=== PATIENT | female | born 2000 | race African-American/Black ===

== ENCOUNTER 2019-06-30 16:54 | Outpatient (CLI) | payer OTHER, MEDICAID, SELFPAY ==
[2019-06-30] MEDS: LACTATED RINGERS 1,000 ML 1000 ML IV (18:00)
[2019-06-30] MEDS: ONDANSETRON 4 MG/2 ML INJ IV (18:17)
== END 2019-06-30 18:50 | disposition home or self-care (01) ==
LOC: LABOR 17:10 → OB 07-01 12:45
PROVIDERS: Visit Provider Obstetrics & Gynecology
DX: Z34.03 Encounter for supervision of normal first pregnancy, third trimester (principal); Z3A.39 39 weeks gestation of pregnancy
CPT/HCPCS: 59025; 96360; G0378; G0379; J2405

== ENCOUNTER 2019-07-12 19:58 | Observation (INO) | payer OTHER, MEDICAID, SELFPAY ==
--- NOTE | 2019-07-12 23:04 | PM.OBTRLD ---
Visit Information Visit Information Date of evaluation: 07/12/19 Primary OB Provider: Vinny Mohr On-call OB Provider: Sharri Peterson Reason for Evaluation: Yes rule out labor Evaluation Evaluation Baseline heart rate: 135 Variability: Moderate (11-25) monitor accelerations: Present monitor decelerations: Absent Contraction Frequency (minutes): 5 Uterine Contraction Intensity: Mild Category of Tracing: I Cervical dilation (cm): 0 Cervical effacement (%): 25 station: -2 Diagnosis, Plan/Disposition Plan/Disposition Plan: Assessment: 18-year-old at 40-,3/7 weeks gestation who presents to rule out labor Patient not in labor Passed mucus plug Plan: Discharged home kick counts Follow-up in [address] Mohr OB Disposition: home
== END 2019-07-12 21:00 | disposition home or self-care (01) ==
LOC: LABOR 20:00
PROVIDERS: Admitting Provider Obstetrics & Gynecology; Visit Provider Obstetrics & Gynecology
DX: O48.0 Post-term pregnancy (principal); Z3A.40 40 weeks gestation of pregnancy
CPT/HCPCS: 59025; 84112; G0378; G0379

== ENCOUNTER 2019-07-13 08:15 | Inpatient (IN) | payer OTHER, MEDICAID, SELFPAY ==
[2019-07-13 09:30] LABS: Add Manual Diff / Slide Review NO; Basophils Absolute Auto 100 /uL (0-100); Basophils Percent Auto 0.4 % (0-2); Eosinophils Absolute Auto 0 /uL (0-450); Hematocrit 33.8 % (36-46); Hemoglobin 11.4 g/dL (12.0-16.0); Lymphocytes Absolute Auto 900 /uL (1100-4500); Lymphocytes Percent Auto 4.4 % (25-40); Mean Corpuscular HGB Conc 33.8 % (30-36); Mean Corpuscular Hemoglobin 27.2 PG (26-34); Mean Corpuscular Volume 80.4 fL (80-100); Monocytes Absolute Auto 600 /uL (0-900); Monocytes Percent Auto 2.8 % (3-14); Neutrophils Absolute Auto 18700 /uL (1500-7000); Neutrophils Percent Auto 92.4 % (50-75); Platelet Count 133 X10^3/uL (150-400); Red Cell Distribution Width 14.2 % (11.6-14.8); White Blood Cell Count 20.3 X10^3/uL (4.5-11.0)
[2019-07-13 10:20] VITALS: BP 122/70
--- NOTE | 2019-07-13 12:16 | P.HPOB_ITS ---
OB HPI Date/Time Date of admission: 07/13/19 Date Patient Seen: 07/13/19 Time Patient Seen: 10:00 History of Present Condition Chief complaint: OBS : 1 Para: 0 Estimated Date of Delivery: 07/07/19 Estimated Gestational Age (weeks): 40 Narrative: Debbie Thrasher is a 18 year old female admitted in active labor History of Present care: good care, initiated at week # (11) and pounds weight gain (19) Preadmission Labs Blood type: A (+) positive -: Antibody screen: negative, GBS status: negative, HBsAG: negative, HSV 2: negative and RPR/VDLR: negative -: Chlamydia screen: not detected and Gonorrhea screen: not detected -: Rubella: immune Cell-free DNA: Negative at 25 weeks 1 hr GTT: 70 Evaluation Evaluation Baseline heart rate: 150 Variability: Moderate (11-25) monitor accelerations: Present monitor decelerations: Absent Contraction Frequency (minutes): 3 Uterine Contraction Intensity: Moderate Category of Tracing: I Cervical dilation (cm): 5 Cervical effacement (%): 70 station: -2 Laboratory results: Laboratory Tests 07/13/19 07/13/19 09:00 09:00 WBC 20.3 H RBC 4.20 Hgb 11.4 L Hct 33.8 L MCV 80.4 MCH 27.2 MCHC 33.8 RDW 14.2 Plt Count 133 L Neut % (Auto) 92.4 H Lymph % (Auto) 4.4 L [place] % (Auto) 2.8 L Eos % (Auto) 0.0 L Baso % (Auto) 0.4 Neut # (Auto) 04270 H Lymph # (Auto) 900 L [place] # (Auto) 600 Eos # (Auto) 0 Baso # (Auto) 100 Blood Type A Positive Antibody Screen Negative [facility] Medical History (Updated 07/13/19 @ 12:45 by Allison Romo MD) Migraine headache (Acute) Social History Smoking Status: Never smoker Social History Smoking Status: Never smoker Review of Systems Review of Systems Narrative: Patient denies any signs or symptoms of preeclampsia. She perhaps enrique d leakage of fluid beginning early this a.m.. Good movement. No fevers. ROS Unobtainable: All systems reviewed & are unremarkable except as noted in HPI and below Exam Vital Signs (past 8 hours): -blood pressure 112/75, pulse of 90, temperature 36? point 07/13/19 10:20 Blood Pressure 122/70 Narrative Exam Narrative: HEENT exam within normal limits. Lungs are clear to auscultation percussion. Heart is regular rate and rhythm no S3-S4 or murmurs. Abdomen is soft, nontender. Fetus is vertex. Extremities without edema and nontender. Objective Labs Result Diagrams: 07/13/19 09:00 Labs: Laboratory Results - last 24 hr 07/13/19 07/13/19 09:00 09:00 WBC 20.3 H RBC 4.20 Hgb 11.4 L Hct 33.8 L MCV 80.4 MCH 27.2 MCHC 33.8 RDW 14.2 Plt Count 133 L Neut % (Auto) 92.4 H Lymph % (Auto) 4.4 L Hamilton % (Auto) 2.8 L Eos % (Auto) 0.0 L Baso % (Auto) 0.4 Neut # (Auto) 27345 H Lymph # (Auto) 900 L Hamilton # (Auto) 600 Eos # (Auto) 0 Baso # (Auto) 100 Blood Type A Positive Antibody Screen Negative Assessment and Plan Assessment and Plan Assessment and Plan narrative: Primigravida at 40 weeks 6 days in active labor. Anticipate vaginal delivery. Patient just received epidural catheter for pain control.
--- NOTE | 2019-07-13 17:53 | P.PCNOB_ITS ---
Labor & Delivery Delivery date: 07/13/19 Delivery monitor: external FHT and external uterine Route of delivery: L&D Laceration Description: None Estimated blood loss (mL): 150 Anesthesia type: Epidural Narrative: Patient arrived on Labor and delivery in active labor. She progressed normally. She received an epidural catheter for pain control. There was clear amniotic fluid. There were intermittent variable decelerations category 1 to category 2 monitor. The patient delivered spontaneously, over an intact perineum a viable male 2 was placed immediately on maternal abdomen. after the cord stopped pulsating the cord was clamped, cut, cord bloods obtained. the placenta delivered spontaneously, intact, with 3 vessels. There were no cervical, vaginal tears. There were minor perineal tears that did not require suturing. Both mother doing well. Estimated blood loss 150 cc. [place] Baby 1: gender: Male Presentation: vertex position: Right Occiput Anterior Placenta delivery description: Spontaneous cord vessel description: 3 Vessels score (1 min): 8 score (5 min): 9 Plan for aftercare: Routine post vaginal delivery care
[2019-07-13 18:14] LABS: HIV 1 & 2 Ab/Ag 4th Gen Combo NEGATIVE (NEGATIVE)
[2019-07-13] MEDS: IBUPROFEN 600 MG TABLET PO (18:33)
[2019-07-14] MEDS: IBUPROFEN 600 MG TABLET PO ×4 (00:16→22:26)
[2019-07-14 05:59] LABS: Add Manual Diff / Slide Review NO; Basophils Absolute Auto 100 /uL (0-100); Basophils Percent Auto 0.3 % (0-2); Eosinophils Absolute Auto 0 /uL (0-450); Eosinophils Percent Auto 0.1 % (2-4); Hematocrit 28.2 % (36-46); Hemoglobin 9.4 g/dL (12.0-16.0); Lymphocytes Absolute Auto 1900 /uL (1100-4500); Lymphocytes Percent Auto 9.4 % (25-40); Mean Corpuscular HGB Conc 33.5 % (30-36); Mean Corpuscular Hemoglobin 27.1 PG (26-34); Mean Corpuscular Volume 80.9 fL (80-100); Monocytes Absolute Auto 1300 /uL (0-900); Monocytes Percent Auto 6.4 % (3-14); Neutrophils Absolute Auto 17000 /uL (1500-7000); Neutrophils Percent Auto 83.8 % (50-75); Platelet Count 123 X10^3/uL (150-400); Red Blood Cell Count 3.48 X10^6/uL (4.0-5.2); Red Cell Distribution Width 14.7 % (11.6-14.8); White Blood Cell Count 20.3 X10^3/uL (4.5-11.0)
--- NOTE | 2019-07-14 13:19 | PM.OBPN.1 ---
Subjective - OB Subjective Patient comments: no complaints [place] baby status: doing well Henderson feeding status: exclusively breast feeding Date Patient Seen: 07/14/19 Time Patient Seen: 13:19 Interval history: post day #1 Patient is without difficulty. She is urinating and ambulating well. As a new mom she does not feel ready to be discharged. Exam Vital Signs (past 8 hours): Blood pressure 118/70, pulse of 92, temperature 98.6? Narrative Exam Narrative: Abdomen is soft, nontender. Uterus is firm, at U, nontender. Mild lochia. Extremities without edema and nontender Objective Labs Result Diagrams: 07/14/19 05:15 Labs: Laboratory Results - last 24 hr 07/13/19 07/14/19 16:30 05:15 WBC 20.3 H RBC 3.48 L Hgb 9.4 L Hct 28.2 L MCV 80.9 MCH 27.1 MCHC 33.5 RDW 14.7 Plt Count 123 L Neut % (Auto) 83.8 H Lymph % (Auto) 9.4 L [place] % (Auto) 6.4 Eos % (Auto) 0.1 L Baso % (Auto) 0.3 Neut # (Auto) 36488 H Lymph # (Auto) 1900 [place]elope # (Auto) 1300 H Eos # (Auto) 0 Baso # (Auto) 100 HIV 1&2 Ab/P24 Ag 4thGn Negative Assessment & Plan Assessment and Plan (1) Vaginal delivery: Status: Acute Current Visit: Yes (2) Acute blood loss anemia: Status: Acute Current Visit: Yes Plan day: 1 plan OB: routine care Time Spent With Patient Time: Total time spent is greater than 50% in coordination of care (as documented) at patient's floor/unit and/or counseling patient: Time with patient: less than 15 minutes
[2019-07-15] MEDS: IBUPROFEN 600 MG TABLET PO (06:14)
--- NOTE | 2019-07-15 07:53 | PM.OBDS.1 ---
Discharge Providers Provider Date of admission: 07/13/19 08:15 Discharge Date: 07/15/19 Consults: 07/13/19 09:10 Consult to Anesthesiology Urgent Comment: Consulting Provider: Anesthesiologist Reason for consultation: Epidural Has provider been notified: No 07/13/19 17:08 Consult to Hospitality Intern Routine Comment: Discharge provider: Allison Romo MD Summary Hospital Course Date Patient Seen: 07/15/19 Time Patient Seen: 07:53 Procedures: Epidural catheter, vaginal delivery Hospital Course: Patient arrived on Labor and delivery in active labor. She received an epidural catheter for pain control. She had a spontaneous vaginal delivery without tears. Patient denies any signs or symptoms of preeclampsia. She is urinating and ambulating well. Blood pressure 104/64, pulse 85, temperature 97.5? .Patient's abdomen is soft, nontender. Uterus is firm, at U nontender. Mild lochia. Extremities without edema and nontender Patient's blood type is Rh positive, she is rubella immune Peripartum Data Infant Delivery Method: Natural Vaginal Laceration description: None Procedures: Epidural catheter, vaginal delivery complications: none 1: Gender: Male Disposition of : home Discharge Diagnosis (1) Vaginal delivery: Status: Acute (2) Acute blood loss anemia: Status: Acute Status at Discharge Cognitive/behavioral status at discharge: oriented Functional status at discharge: independent ambulation Overall status at discharge: patient is progressing back to baseline Time Spent with Patient Time attestation: Total time spent providing and/or coordinating discharge services: Time spent: Less than 30 minutes Objective Labs Result Diagrams: 07/14/19 05:15 Discharge Plan Discharge Plan Patient Disposition: Home Discharge Med Rec/Prescriptions Prescriptions: New vit no.109-iron-FA 40 mg iron- 1 mg tablet,chewable 1 tab PO DAILY Qty: 90 RF: 1 docusate sodium [Dulcolax Stool Softener (dss)] 100 mg capsule 100 mg PO DAILY Qty: 30 RF: 0 ferrous gluconate 324 mg (38 mg iron) tablet 324 mg PO DAILY Qty: 60 RF: 0 ibuprofen 600 mg Tablet 600 mg PO Q6HR PRN (Reason: Pain, Mild (1-3)) Qty: 30 RF: 0 Follow up/Referrals: Allison Romo MD [Physician] - 1 Month Provider Discharge Instructions Diet: Regular Activity: Nothing in vagina for 4 weeks Skin/Wound/Dressing Care Report to your healthcare provider any signs of infection, such as:: chills, fever and increased pain
[2019-07-15] MEDS: FERROUS GLUCONATE 324 MG TABLET PO (10:27)
[2019-07-15] MEDS: LANOLIN OINT 7 GM 1 APPLIC TOP (10:27)
== END 2019-07-15 12:15 | disposition home or self-care (01) | DRG 560 ==
PROVIDERS: Specialist
DX: O80 Encounter for full-term uncomplicated delivery (principal); Z3A.40 40 weeks gestation of pregnancy; Z37.0 Single live birth; D62 Acute posthemorrhagic anemia
CPT/HCPCS: 01967; 36415; 59050; 59409; 85025; 86850; 86900; 86901; 87389; G0379

== ENCOUNTER 2020-01-05 08:58 | Inpatient (IN) | payer OTHER, MEDICAID, SELFPAY ==
[2020-01-05] VITALS (16 sets, daily range): BP systolic 99–122; BP diastolic 50–89; PULSE 108–140; RESP 15–24; TEMP 36.4–38.8; O2SAT 96–100; BMI 19.3
[2020-01-05] MEDS: ONDANSETRON 4 MG ODT SL (10:35)
[2020-01-05 10:46] LABS: Add Manual Diff / Slide Review NO; Basophils Absolute Auto 0 /uL (0-100); Basophils Percent Auto 0.2 % (0-2); Eosinophils Absolute Auto 100 /uL (0-450); Eosinophils Percent Auto 0.5 % (2-4); Hematocrit 42.8 % (36-46); Hemoglobin 14.5 g/dL (12.0-16.0); Lymphocytes Absolute Auto 500 /uL (1100-4500); Lymphocytes Percent Auto 3.3 % (25-40); Mean Corpuscular HGB Conc 33.9 % (30-36); Mean Corpuscular Hemoglobin 29.7 PG (26-34); Mean Corpuscular Volume 87.7 fL (80-100); Monocytes Absolute Auto 500 /uL (0-900); Monocytes Percent Auto 3.7 % (3-14); Neutrophils Absolute Auto 13200 /uL (1500-7000); Neutrophils Percent Auto 92.3 % (50-75); Platelet Count 246 X10^3/uL (150-400); Red Blood Cell Count 4.88 X10^6/uL (4.0-5.2); Red Cell Distribution Width 14.6 % (11.6-14.8); White Blood Cell Count 14.3 X10^3/uL (4.5-11.0)
[2020-01-05 10:55] LABS: INR 1.1 (0.9-1.3); Prothrombin Time 12.5 SECONDS (10.1-12.7)
[2020-01-05 10:58] LABS: PTT Partial Thromboplastin Tim 32 SECONDS (26.4-36.2)
[2020-01-05 11:00] LABS: Alanine Aminotransferase 37 IU/L (<35); Albumin 4.9 g/dL (3.5-5.0); Albumin Globulin Ratio 1.2 (1.0-2.8); Alkaline Phosphatase 96 U/L (38-126); Aspartate Aminotransferase 39 IU/L (14-36); Bilirubin Total 0.7 mg/dL (0.2-1.3); Blood Urea Nitrogen 15 mg/dL (7-17); Calcium 9.8 mg/dL (8.4-10.2); Carbon Dioxide 25 mmol/L (22-32); Chloride 104 mmol/L (98-107); Estimated Glomerular Filt Rate > 60.0 mL/min (>60); Globulin 4.1 g/dL (1.7-4.1); Glucose 82 mg/dL (70-100); HEMOLYSIS 18 (0-50); Lipase 95 U/L (23-300); Potassium 4.2 mmol/L (3.4-5.1); Sodium 140 mmol/L (137-145)
--- NOTE | 2020-01-05 11:20 | ED_ITS ---
HPI - Abdominal Pain <KENNETH Prasad - Last Filed: 01/05/20 22:05> General Chief Complaint: Abdominal Pain Stated Complaint: abdominal pain, sick Time Seen by Provider: 01/05/20 09:03 Source: patient Mode of arrival: Ambulatory History of Present Illness HPI narrative: 19yo female presents to the emergency department complaining of right lower quadrant pain for the past 3-4 days. Patient states initially s tarted on the right side and has progressed to the middle of her abdomen. She has had nausea without vomiting. Patient states she has had chills and fever at home. She states the pain is a dull aching 6/10 that is worse with movement and slightly better with rest. Patient states over the past few hours the pain has gotten significantly worse. She denies taking anything for pain. She denies a ny constipation, abdominal surgeries, chest pain, dizziness, blood in her stool, or any other concerns. Patient states that she feels short of breath during the painful episodes. She also states she has had a cough for the past week. Patient states she gave to her daughter in July. Patient denies any concerns for STIs, states she has had the same partner for more than 6 months. Related Data Home Medications Medication Instructions Recorded Confirmed No Known Home Medications 01/05/20 01/05/20 Allergies Allergy/AdvReac Type Severity Reaction Status Date / Time No Known Drug Allergies Allergy Verified 01/05/20 22:26 Review of Systems <KENNETH Prasad - Last Filed: 01/05/20 22:05> Review of Systems Narrative: REVIEW OF SYSTEMS: GENERAL: Denies fever, chills, malaise, or wt. loss. HENT: No head trauma, sore throat, or dysphagia. EYES: No vision changes. CARDIOVASCULAR: No chest pain, palpitations, or orthopnea. RESPIRATORY: Reports cough, see HPI. GASTROINTESTINAL: Complains of right lower quadrant abdominal pain, see HPI GENITOURINARY: No flank pain, urinary incontinence, hesitancy, frequency, or dysuria. No vaginal discharge or dyspareunia. Denies concerns for STIs MUSCULOSKELETAL: No pain, weakness, or trauma. INTEGUMENTARY: No rash, lesions, or pruritus. NEURO: No headaches. Patient History <KENNETH Prasad - Last Filed: 02/27/20 22:05> Medical History Migraine headache (Acute) Vaginal delivery (Acute ~07/2019) Social History household members: family and children Smoking Status: Never smoker alcohol intake: never Smoking Status: Never smoker Exam <Daisy GuyKENNETH - Last Filed: 01/05/20 22:05> Initial Vital Signs Initial Vital Signs: Vital Signs Temperature 97.6 F 01/05/20 09:08 Pulse Rate 108 H 01/05/20 09:08 Respiratory Rate 15 01/05/20 09:08 Blood Pressure 111/62 01/05/20 09:08 Pulse Oximetry 100 01/05/20 09:08 PHYSICAL EXAMINATION: GENERAL: Well groomed, alert, and cooperative. Answers questions promptly and appropriately. Vital signs noted. HENT: Normocephalic, atraumatic. Hearing intact. Oral mucosa is pink and moist. EYES: Conjunctiva pink, sclera white, no periorbital swelling. CARDIOVASCULAR: S1 and S2 sounds normal. Increased rate and regular rhythm, no murmurs, clicks, or bruits. RESPIRATORY: Normal respiratory rate, trachea midline, airway patent. No stridor, nasal flaring or accessory muscle use. Lungs are clear in all morales without wheeze, rhonchi, or crackles. GASTROINTESTINAL: Bowel sounds normoactive. Abdomen is soft, right lower quadrant tenderness, right lower quadrant rebound tenderness. No organomegaly, no palpable masses. GENITALURINARY: No flank tenderness. Speculum pelvic exam was performed, cervix was visualized, no erythema, increased tomorrow of white discharge noted. Wet prep simple was taken. Right index a tenderness. Moderate CVA tenderness. Vulva without erythema or lesions. JOSE C Burrows was present during pelvic exam, patient tolerated exam well. MUSCULOSKELETAL: Normal gait and coordination. Equal tone and mass bilaterally. EXTREMITIES: CMS intact, no pedal edema. SKIN: Warm, dry, soft, appropriate color for ethnicity. No lesions, rashes, or wounds to visualized areas. NEURO: Alert and Oriented X 3. Good coordination. No ataxia, or sensory deficits, or cognitive issues. PSYCH: Appropriate affect and mood. <Tiana Ramirez MD - Last Filed: 01/06/20 03:25> Initial Vital Signs Initial Vital Signs: Vital Signs Temperature 97.6 F 01/05/20 09:08 Pulse Rate 108 H 01/05/20 09:08 Respiratory Rate 15 01/05/20 09:08 Blood Pressure 111/62 01/05/20 09:08 Pulse Oximetry 100 01/05/20 09:08 Course <KENNETH Prasad - Last Filed: 01/05/20 22:05> Course Course Narrative: Patient was given IV fluids and Zofran in the emergency department. test done before CT scan and Toradol administration. Patient received sepsis resus fluids, APAP was given. Influenza test was ordered and chest x-ray to check for other infectious etiologies. CT was negative for cause of fever, tachycardia, and pain. Patient continued to complain of right lower quadrant pain, she was given 2 mg of IV morphine to help with pain. She states this reduced her pain. Pelvic ultrasound and pelvic exam was complete, tenderness was noted on exam, ultrasound was negative. I called Dr. Luque who agreed and [employer] consult was advised. I talked to Dr. Byers who states she ill come to the ED to evaluate the patient. Patient was switched to LR at 200ml/hr to maintence. Patient continued to have recurrence of additional morphine and Zofran were ordered. Patient was evaluated in the emergency department by Dr. Byers who admitted the patient as inpatient. Patient did remain stable despite tachycardia, blood pressure remained within normal limits. She remained alert and awake. She was seen breast-feeding her baby as well. Orders Ordered: Acetaminophen (Tylenol) 650 mg PO Q6HR PRN PRN Reason: Fever/Mild Pain (1-3) Hydrocodone Bitart/Acetaminophen ([place] 5/325) 1 tab PO Q4HR PRN PRN Reason: Pain, Moderate (4-6) Hydrocodone Bitart/Acetaminophen ([place] 5/325) 2 tab PO Q4HR PRN PRN Reason: Pain, Severe (7-10) Gentamicin Sulfate (Garamycin Trough) 1 request MISC NOW ONE Stop: 01/08/20 20:31 Gentamicin Sulfate (Garamycin Peak) 1 request MISC NOW ONE Stop: 01/08/20 22:31 Clindamycin Phosphate (Cleocin) 900 mg in 50 mls @ 50 mls/hr IV Q8HR [facility] Last Admin: 01/05/20 23:24 Dose: 50 mls/hr Documented by: MELODY Gentamicin Sulfate 140 mg/ (Sodium Chloride) 103.5 mls @ 103.5 mls/hr IV Q24H [facility] Last Infusion: 01/05/20 23:24 Dose: 0 mls/hr Documented by: Admin: 01/05/20 21:23 Dose: 103.5 mls/hr Documented by: MELODY Lactated Ringer's (Lactated Ringers) 1,000 mls @ 100 mls/hr IV CONT [facility] Last Admin: 01/05/20 23:24 Dose: 100 mls/hr Documented by: MELODY Ondansetron HCl (Zofran) 4 mg IV Q4HR PRN PRN Reason: Nausea Promethazine HCl (Phenadoz) 12.5 mg PO Q6HR PRN PRN Reason: Nausea Discontinued Medications Acetaminophen (Tylenol) 975 mg PO NOW ONE Stop: 01/05/20 13:05 Last Admin: 01/05/20 13:12 Dose: 975 mg Documented by: ALEX Gentamicin Sulfate (Garamycin Per Pharmacy) 139.5 request [facility] – [place] NOW [facility] Sodium Chloride (Normal Saline 0.9%) 1,000 mls @ 1,000 mls/hr IV BOLUS ONE Stop: 01/05/20 12:11 Last Infusion: 01/05/20 13:10 Dose: 0 mls/hr Documented by: Admin: 01/05/20 11:27 Dose: 1,000 mls/hr Documented by: ALEX Sodium Chloride (Normal Saline 0.9%) 1,000 mls @ 1,000 mls/hr IV BOLUS ONE Stop: 01/05/20 14:03 Last Infusion: 01/05/20 14:10 Dose: 0 mls/hr Documented by: Admin: 01/05/20 13:13 Dose: 1,000 mls/hr Documented by: ALEX Sodium Chloride (Normal Saline 0.9%) 1,395 mls @ 465 mls/hr 30 ml/kg infuse over 3 hr (1395 ml) IV NOW ONE Stop: 01/05/20 18:06 Last Admin: 01/05/20 15:10 Dose: Not Given Documented by: ALEX Lactated Ringer's (Lactated Ringers) 1,000 mls @ 200 mls/hr IV CONT [facility] Last Infusion: 01/05/20 23:10 Dose: 100 mls/hr Documented by: Admin: 01/05/20 21:18 Dose: 200 mls/hr Documented by: Infusion: 01/05/20 20:59 Dose: 0 mls/hr Documented by: Admin: 01/05/20 15:31 Dose: 200 mls/hr Documented by: ALEX Piperacillin/Tazobactam/Dextrose (Zosyn) 3.375 gm in 50 mls @ 100 mls/hr IV NOW ONE Stop: 01/05/20 17:00 Last Infusion: 01/05/20 17:16 Dose: 0 mls/hr Documented by: Admin: 01/05/20 16:44 Dose: 100 mls/hr Documented by: ALEX Ketorolac Tromethamine (Toradol) 30 mg IV NOW ONE Stop: 01/05/20 11:28 Last Admin: 01/05/20 12:39 Dose: 30 mg Documented by: ALEX Morphine Sulfate (Morphine) 2 mg IV NOW ONE Stop: 01/05/20 15:32 Last Admin: 01/05/20 15:44 Dose: 2 mg Documented by: ALEX Ondansetron HCl (Zofran Odt) 4 mg SL NOW ONE Stop: 01/05/20 10:32 Last Admin: 01/05/20 10:35 Dose: 4 mg Documented by: REAL Ondansetron HCl (Zofran) 4 mg IV NOW ONE Stop: 01/05/20 11:13 Last Admin: 01/05/20 11:28 Dose: 4 mg Documented by: ALEX Consultations Consultation #1: Patient staffed with 1700 Dr. Luque was consulted 1719: Dr. Yeh consulted, she states she will see the patient in approximately an hour. 1850: Dr. Yeh was present in the emergency department to evaluate patient. Vital Signs Vital signs: Vital Signs - 8 hr 01/05/20 19:54 Pulse Rate 127 H Respiratory Rate 17 Blood Pressure [Left Arm] 108/56 L Pulse Oximetry 100 <Tiana Ramirez MD - Last Filed: 01/06/20 03:25> Orders Ordered: Acetaminophen (Tylenol) 650 mg PO Q6HR PRN PRN Reason: Fever/Mild Pain (1-3) Hydrocodone Bitart/Acetaminophen ([place] 5/325) 1 tab PO Q4HR PRN PRN Reason: Pain, Moderate (4-6) Hydrocodone Bitart/Acetaminophen ([place] 5/325) 2 tab PO Q4HR PRN PRN Reason: Pain, Severe (7-10) Gentamicin Sulfate (Garamycin Trough) 1 request [facility] [place] NOW ONE Stop: 01/08/20 20:31 Gentamicin Sulfate (Garamycin Peak) 1 request [facility] [place] NOW ONE Stop: 01/08/20 22:31 Clindamycin Phosphate (Cleocin) 900 mg in 50 mls @ 50 mls/hr IV Q8HR [facility] Last Admin: 01/05/20 23:24 Dose: 50 mls/hr Documented by: MELODY Gentamicin Sulfate 140 mg/ (Sodium Chloride) 103.5 mls @ 103.5 mls/hr IV Q24H [facility] Last Infusion: 01/05/20 23:24 Dose: 0 mls/hr Documented by: Admin: 01/05/20 21:23 Dose: 103.5 mls/hr Documented by: MELODY Lactated Ringer's (Lactated Ringers) 1,000 mls @ 100 mls/hr IV CONT [facility] Last Admin: 01/05/20 23:24 Dose: 100 mls/hr Documented by: MELODY Ondansetron HCl (Zofran) 4 mg IV Q4HR PRN PRN Reason: Nausea Promethazine HCl (Phenadoz) 12.5 mg PO Q6HR PRN PRN Reason: Nausea Discontinued Medications Acetaminophen (Tylenol) 975 mg PO NOW ONE Stop: 01/05/20 13:05 Last Admin: 01/05/20 13:12 Dose: 975 mg Documented by: ALEX Gentamicin Sulfate (Garamycin Per Pharmacy) 139.5 request [facility] – [place] NOW [facility] Sodium Chloride (Normal Saline 0.9%) 1,000 mls @ 1,000 mls/hr IV BOLUS ONE Stop: 01/05/20 12:11 Last Infusion: 01/05/20 13:10 Dose: 0 mls/hr Documented by: Admin: 01/05/20 11:27 Dose: 1,000 mls/hr Documented by: ALEX Sodium Chloride (Normal Saline 0.9%) 1,000 mls @ 1,000 mls/hr IV BOLUS ONE Stop: 01/05/20 14:03 Last Infusion: 01/05/20 14:10 Dose: 0 mls/hr Documented by: Admin: 01/05/20 13:13 Dose: 1,000 mls/hr Documented by: ALEX Sodium Chloride (Normal Saline 0.9%) 1,395 mls @ 465 mls/hr 30 ml/kg infuse over 3 hr (1395 ml) IV NOW ONE Stop: 01/05/20 18:06 Last Admin: 01/05/20 15:10 Dose: Not Given Documented by: ALEX Lactated Ringer's (Lactated Ringers) 1,000 mls @ 200 mls/hr IV CONT [facility] Last Infusion: 01/05/20 23:10 Dose: 100 mls/hr Documented by: Admin: 01/05/20 21:18 Dose: 200 mls/hr Documented by: Infusion: 01/05/20 20:59 Dose: 0 mls/hr Documented by: Admin: 01/05/20 15:31 Dose: 200 mls/hr Documented by: ALEX Piperacillin/Tazobactam/Dextrose (Zosyn) 3.375 gm in 50 mls @ 100 mls/hr IV NOW ONE Stop: 01/05/20 17:00 Last Infusion: 01/05/20 17:16 Dose: 0 mls/hr Documented by: Admin: 01/05/20 16:44 Dose: 100 mls/hr Documented by: ALEX Ketorolac Tromethamine (Toradol) 30 mg IV NOW ONE Stop: 01/05/20 11:28 Last Admin: 01/05/20 12:39 Dose: 30 mg Documented by: ALEX Morphine Sulfate (Morphine) 2 mg IV NOW ONE Stop: 01/05/20 15:32 Last Admin: 01/05/20 15:44 Dose: 2 mg Documented by: ALEX Ondansetron HCl (Zofran Odt) 4 mg SL NOW ONE Stop: 01/05/20 10:32 Last Admin: 01/05/20 10:35 Dose: 4 mg Documented by: REAL Ondansetron HCl (Zofran) 4 mg IV NOW ONE Stop: 01/05/20 11:13 Last Admin: 01/05/20 11:28 Dose: 4 mg Documented by: ALEX Vital Signs Vital signs: Vital Signs - 8 hr 01/05/20 19:54 Pulse Rate 127 H Respiratory Rate 17 Blood Pressure [Left Arm] 108/56 L Pulse Oximetry 100 MDM - Abdominal Pain <KENNETH Prasad - Last Filed: 01/05/20 22:05> Medical Records Attestation: I reviewed the patient's medical records. Lab Data Attestation: I reviewed the patient's lab results. Result diagrams: 01/05/20 10:32 01/05/20 20:50 Labs: Lab Results 01/05/20 01/05/20 01/05/20 Range/Units 10:32 10:32 10:32 WBC 14.3 H (4.5-11.0) X10^3/uL RBC 4.88 (4.0-5.2) X10^6/uL Hgb 14.5 (12.0-16.0) g/dL Hct 42.8 (36-46) % MCV 87.7 (80-100) fL MCH 29.7 (26-34) PG MCHC 33.9 (30-36) % RDW 14.6 (11.6-14.8) % Plt Count 246 (150-400) X10^3/uL Neut % (Auto) 92.3 H (50-75) % Lymph % (Auto) 3.3 L (25-40) % Braxton % (Auto) 3.7 (3-14) % Eos % (Auto) 0.5 L (2-4) % Baso % (Auto) 0.2 (0-2) % Neut # (Auto) 13244 H (5767-2716) /uL Lymph # (Auto) 500 L (6638-2106) /uL Braxton # (Auto) 500 (0-900) /uL Eos # (Auto) 100 (0-450) /uL Baso # (Auto) 0 (0-100) /uL PT 12.5 (10.1-12.7) SECONDS INR 1.1 (0.9-1.3) APTT 32 (26.4-36.2) SECONDS Sodium 140 (137-145) mmol/L Potassium 4.2 (3.4-5.1) mmol/L Chloride 104 (98-107) mmol/L Carbon Dioxide 25 (22-32) mmol/L BUN 15 (7-17) mg/dL Creatinine 0.50 L (0.52-1.04) mg/dL Estimated GFR > 60.0 (>60) mL/min BUN/Creatinine Ratio 30.0 H (6-22) Glucose 82 (70-100) mg/dL Lactate (0.7-2.1) mmol/L Calcium 9.8 (8.4-10.2) mg/dL Total Bilirubin 0.7 (0.2-1.3) mg/dL AST 39 H (14-36) IU/L ALT 37 H (<35) IU/L Alkaline Phosphatase 96 (38-126) U/L Total Protein 9.0 H (6.3-8.2) g/dL Albumin 4.9 (3.5-5.0) g/dL Globulin 4.1 (1.7-4.1) g/dL Albumin/Globulin Ratio 1.2 (1.0-2.8) Lipase 95 (23-300) U/L Procalcitonin (<0.5) ng/mL HCG, Quant mIU/mL Urine Color Urine Appearance Urine pH (4.5-8.0) Ur Specific Sumner (1.000-1.035) Urine Protein (Negative) Urine Glucose (UA) (Negative) g/dL Urine Ketones (NEGATIVE) Urine Occult Blood (Negative) Urine Nitrate (Negative) Urine Bilirubin (NEGATIVE) Urine Urobilinogen (0.2) E.U./dL Ur Leukocyte Esterase (NEGATIVE) Urine RBC (0-5/HPF) Urine WBC (0-5/HPF) Ur Squamous Epith Cells (0-5/HPF) Urine Bacteria (None) Urine Mucus (Negative) Ur Culture Indicated? Ur Chlamydia DNA (PCR) Influenza A (RT-PCR) (NEGATIVE) Influenza B (RT-PCR) (NEGATIVE) N gonorrhoeae DNA (PCR) 01/05/20 01/05/20 01/05/20 Range/Units 10:32 11:32 11:32 WBC (4.5-11.0) X10^3/uL RBC (4.0-5.2) X10^6/uL Hgb (12.0-16.0) g/dL Hct (36-46) % MCV (80-100) fL MCH (26-34) PG MCHC (30-36) % RDW (11.6-14.8) % Plt Count (150-400) X10^3/uL Neut % (Auto) (50-75) % Lymph % (Auto) (25-40) % Braxton % (Auto) (3-14) % Eos % (Auto) (2-4) % Baso % (Auto) (0-2) % Neut # (Auto) (2419-4622) /uL Lymph # (Auto) (4292-2100) /uL Braxton # (Auto) (0-900) /uL Eos # (Auto) (0-450) /uL Baso # (Auto) (0-100) /uL PT (10.1-12.7) SECONDS INR (0.9-1.3) APTT (26.4-36.2) SECONDS Sodium (137-145) mmol/L Potassium (3.4-5.1) mmol/L Chloride (98-107) mmol/L Carbon Dioxide (22-32) mmol/L BUN (7-17) mg/dL Creatinine (0.52-1.04) mg/dL Estimated GFR (>60) mL/min BUN/Creatinine Ratio (6-22) Glucose (70-100) mg/dL Lactate 1.3 (0.7-2.1) mmol/L Calcium (8.4-10.2) mg/dL Total Bilirubin (0.2-1.3) mg/dL AST (14-36) IU/L ALT (<35) IU/L Alkaline Phosphatase (38-126) U/L Total Protein (6.3-8.2) g/dL Albumin (3.5-5.0) g/dL Globulin (1.7-4.1) g/dL Albumin/Globulin Ratio (1.0-2.8) Lipase (23-300) U/L Procalcitonin < 0.05 (<0.5) ng/mL HCG, Quant < 2.39 mIU/mL Urine Color Urine Appearance Urine pH (4.5-8.0) Ur Specific Sumner (1.000-1.035) Urine Protein (Negative) Urine Glucose (UA) (Negative) g/dL Urine Ketones (NEGATIVE) Urine Occult Blood (Negative) Urine Nitrate (Negative) Urine Bilirubin (NEGATIVE) Urine Urobilinogen (0.2) E.U./dL Ur Leukocyte Esterase (NEGATIVE) Urine RBC (0-5/HPF) Urine WBC (0-5/HPF) Ur Squamous Epith Cells (0-5/HPF) Urine Bacteria (None) Urine Mucus (Negative) Ur Culture Indicated? Ur Chlamydia DNA (PCR) Influenza A (RT-PCR) (NEGATIVE) Influenza B (RT-PCR) (NEGATIVE) N gonorrhoeae DNA (PCR) 01/05/20 01/05/20 01/05/20 Range/Units 12:32 12:32 14:06 WBC (4.5-11.0) X10^3/uL RBC (4.0-5.2) X10^6/uL Hgb (12.0-16.0) g/dL Hct (36-46) % MCV (80-100) fL MCH (26-34) PG MCHC (30-36) % RDW (11.6-14.8) % Plt Count (150-400) X10^3/uL Neut % (Auto) (50-75) % Lymph % (Auto) (25-40) % Braxton % (Auto) (3-14) % Eos % (Auto) (2-4) % Baso % (Auto) (0-2) % Neut # (Auto) (1748-5363) /uL Lymph # (Auto) (7043-6775) /uL Braxton # (Auto) (0-900) /uL Eos # (Auto) (0-450) /uL Baso # (Auto) (0-100) /uL PT (10.1-12.7) SECONDS INR (0.9-1.3) APTT (26.4-36.2) SECONDS Sodium (137-145) mmol/L Potassium (3.4-5.1) mmol/L Chloride (98-107) mmol/L Carbon Dioxide (22-32) mmol/L BUN (7-17) mg/dL Creatinine (0.52-1.04) mg/dL Estimated GFR (>60) mL/min BUN/Creatinine Ratio (6-22) Glucose (70-100) mg/dL Lactate (0.7-2.1) mmol/L Calcium (8.4-10.2) mg/dL Total Bilirubin (0.2-1.3) mg/dL AST (14-36) IU/L ALT (<35) IU/L Alkaline Phosphatase (38-126) U/L Total Protein (6.3-8.2) g/dL Albumin (3.5-5.0) g/dL Globulin (1.7-4.1) g/dL Albumin/Globulin Ratio (1.0-2.8) Lipase (23-300) U/L Procalcitonin (<0.5) ng/mL HCG, Quant mIU/mL Urine Color Yellow Urine Appearance Clear Urine pH 6.0 (4.5-8.0) Ur Specific Sumner 1.015 (1.000-1.035) Urine Protein Negative (Negative) Urine Glucose (UA) Negative (Negative) g/dL Urine Ketones 1+ H (NEGATIVE) Urine Occult Blood Negative (Negative) Urine Nitrate Negative (Negative) Urine Bilirubin Negative (NEGATIVE) Urine Urobilinogen 0.2 (0.2) E.U./dL Ur Leukocyte Esterase Negative (NEGATIVE) Urine RBC None seen (0-5/HPF) Urine WBC None seen (0-5/HPF) Ur Squamous Epith Cells 0-1 /hpf (0-5/HPF) Urine Bacteria Occasional (0-1) (None) Urine Mucus 1+ H (Negative) Ur Culture Indicated? Cult not indicated Ur Chlamydia DNA (PCR) Not detected Influenza A (RT-PCR) Flu a negative (NEGATIVE) Influenza B (RT-PCR) Flu b negative (NEGATIVE) N gonorrhoeae DNA (PCR) Not detected Imaging Data Chest x-ray: Radiologist's Impression: [address] [address] XRay Report Signed Patient: Debbie Thrasher VMR#: [id number] : 2000Acct:[id number] Age/Sex: 19 / FDate of Service: 01/05/20 Loc: ED Accession Number: [id number] Procedure: XR chest 1V Ordering Provider: Hedlin,Daisy [employer] JOGGER PROCEDURE: XR CHEST 1V INDICATIONS: SOB, Tachycardia, Cough TECHNIQUE: One view of the chest was acquired. COMPARISON: None. FINDINGS: Surgical changes and devices: None. Lungs and pleura: Lungs are clear. No pleural effusions or pneumothorax. Mediastinum: Mediastinal contours appear normal. Heart size is normal. Bones and chest wall: No suspicious bony lesions. Overlying soft tissues appear unremarkable. IMPRESSION: No acute cardiopulmonary pathology. Dictated by: David Maya M.D. on 01/05/2020 at 14:14 Approved by: David Maya M.D. on 01/05/2020 at 14:14 US - abdomen: Radiologist's Impression: [place] [address] Ultrasound Report Signed Patient: Debbie Thrasher VMR#: [id number] : 2000Acct:[id number] Age/Sex: FDate of Service: 01/05/20 Loc: ED Accession Number: [id number] Procedure: US pelvic complete Ordering Provider: Daisy Guy PROCEDURE: US PELVIC COMPLETE INDICATIONS: RLQ PAIN. POSSIBLE PID TECHNIQUE: Real-time scanning was performed of the pelvic organs, with image documentation. Additional endovaginal scanning was necessary due to incomplete visualization of the adnexal and endometrial structures by transabdominal scanning. COMPARISON: [facility], CT, CT ABDOMEN PELVIS W CON, 01/05/2020, 12:01. FINDINGS: Transabdominal scanning: Limited scanning through the kidneys shows no hydronephrosis. No pathologic free abdominal or pelvic fluid. Endovaginal scanning: Uterus: Uterus is normal in size at 4.4 x 2.6 x 4.0 cm. The endometrium measures 3 mm in combined thickness. No focal myometrial lesions are identified. There is no significant fluid seen within the endometrium. Ovaries: The right ovary measures 2.0 x 2.8 x 2.8 cm. The left ovary measures 2.1 x 1.6 x 1.4 cm. Both ovaries are normal in size without a cystic or solid abnormality. Blood flow is demonstrated to both ovaries, which have a normal arterial Doppler waveform. IMPRESSION: The uterus and ovaries are within normal limits. Dictated by: Jarvis Walden M.D. on 01/05/2020 at 15:43 Approved by: Jarvis Walden M.D. on 01/05/2020 at 15:44 CT scan - abdomen/pelvis: Radiologist's Impression: [address] [address] [address] Scan Report Signed Patient: Debbie Thrasher VMR#: [id number] : 2000Acct:[id number] Age/Sex: 19 / FDate of Service: 01/05/20 Loc: ED Accession Number: [id number] Procedure: CT abdomen pelvis w con Ordering Provider: Daisy Guy PROCEDURE: CT ABDOMEN PELVIS W CON INDICATIONS: RLQ px, fever, WBC elevated, r/o appendicitis TECHNIQUE: After the administration of oral and intravenous contrast, 5 mm thick sections acquired from the diaphragms to the symphysis. 5 mm thick coronal and sagittal reformats were performed. For radiation dose reduction, the following was used: automated exposure control, adjustment of mA and/or kV according to patient size. COMPARISON: None. FINDINGS: Image quality: Diagnostic. ABDOMEN: Lung bases: Lung bases are clear. Heart size is normal. Solid organs: Liver is normal in size and enhancement. However, does appear to be a small area of fatty infiltration involving the left hepatic lobe along the falciform ligament. Gallbladder is not enlarged or inflamed. Biliary system is non- dilated. Pancreas enhances normally. Spleen is normal in size and enhancement. No a drenal nodules. Kidneys are normal in size and enhancement, without hydronephrosis. Incidental note is made of a small simple appearing renal cyst on the inferior portion of the left kidney that measures up to approximately 8 mm in diameter. Peritoneum and bowel: Stomach is unremarkable and a few small bowel loops within the left upper quadrant are borderline prominent and demonstrates mild mucosal enhancement. Similar appearance is noted involving the small bowel loops within the pelvis. No sig thickening or pathologically dilated bowel loops are identified. The appendix is well-visualized and normal (image 255, series 2). Nodes and vessels: No retroperitoneal or mesenteric adenopathy. Aorta and inferior vena cava are normal in caliber. Bones: No acute fracture or suspicious osseous lesions are PELVIS: Genitourinary: Bladder wall thickness is normal. There may be a small uterine fibroid on the posterior margin of the uterus. Miscellaneous: No inguinal hernias or adenopathy. Bones: No suspicious bony lesions. No vertebral body compression fractures. IMPRESSION: 1. No definite acute abnormality within the abdomen or pelvis. 2. Questionable enteritis. 3. No bowel obstruction. Normal appendix. 4. Possible small intradural fibroid. Dictated by: Jarvis Walden M.D. on 01/05/2020 at 11:33 Approved by: Jarvis Walden M.D. on 01/05/2020 at 11:39 ECG Data Interpretation: Sinus tachycardia, rate 122, VA interval 128, QTC [address] elevation or ST depression, no T-wave abnormality, no ectopy. EKG also viewed by Dr. Hills. [facility] Narrative Medical decision making narrative: This is a 19-year-old female presents emergency department with sepsis and right lower quadrant pain. Patient continued to have persistent tachycardia even after septic fluid administration No appendicitis or cause of symptoms were found on CT (possible enteritis but not significant enough to create sepsis symptoms), respiratory pathways her infection revaluated via chest x-ray and influenza swab as patient did report some rhinorrhea. However, these test results were negative. Ultrasound was initiated to further visualize ovaries due to right lower quadrant pain. Zosyn was started to cover for abdominal etiologies. Pelvic exam reveals CVA tenderness andexa tenderness. After consultation with hospitalist, Ob was consulted for evaluation of possible PID despite low risk factors (lack of STDs, same sexual partner). Patient agreed to hospital admission and was admitted to Dr. Frey, [employer]/OB. <Tiana Ramirez MD - Last Filed: 01/06/20 03:25> Lab Data Labs: Lab Results 01/05/20 01/05/20 01/05/20 Range/Units 10:32 10:32 10:32 WBC 14.3 H (4.5-11.0) X10^3/uL RBC 4.88 (4.0-5.2) X10^6/uL Hgb 14.5 (12.0-16.0) g/dL Hct 42.8 (36-46) % MCV 87.7 (80-100) fL MCH 29.7 (26-34) PG MCHC 33.9 (30-36) % RDW 14.6 (11.6-14.8) % Plt Count 246 (150-400) X10^3/uL Neut % (Auto) 92.3 H (50-75) % Lymph % (Auto) 3.3 L (25-40) % [place] % (Auto) 3.7 (3-14) % Eos % (Auto) 0.5 L (2-4) % Baso % (Auto) 0.2 (0-2) % Neut # (Auto) 80525 H (2183-7854) /uL Lymph # (Auto) 500 L (9507-9034) /uL [place] # (Auto) 500 (0-900) /uL Eos # (Auto) 100 (0-450) /uL Baso # (Auto) 0 (0-100) /uL PT 12.5 (10.1-12.7) SECONDS INR 1.1 (0.9-1.3) APTT 32 (26.4-36.2) SECONDS Sodium 140 (137-145) mmol/L Potassium 4.2 (3.4-5.1) mmol/L Chloride 104 (98-107) mmol/L Carbon Dioxide 25 (22-32) mmol/L BUN 15 (7-17) mg/dL Creatinine 0.50 L (0.52-1.04) mg/dL Estimated GFR > 60.0 (>60) mL/min BUN/Creatinine Ratio 30.0 H (6-22) Glucose 82 (70-100) mg/dL Lactate (0.7-2.1) mmol/L Calcium 9.8 (8.4-10.2) mg/dL Total Bilirubin 0.7 (0.2-1.3) mg/dL AST 39 H (14-36) IU/L ALT 37 H (<35) IU/L Alkaline Phosphatase 96 (38-126) U/L Total Protein 9.0 H (6.3-8.2) g/dL Albumin 4.9 (3.5-5.0) g/dL Globulin 4.1 (1.7-4.1) g/dL Albumin/Globulin Ratio 1.2 (1.0-2.8) Lipase 95 (23-300) U/L Procalcitonin (<0.5) ng/mL HCG, Quant mIU/mL Urine Color Urine Appearance Urine pH (4.5-8.0) Ur Specific [place] (1.000-1.035) Urine Protein (Negative) Urine Glucose (UA) (Negative) g/dL Urine Ketones (NEGATIVE) Urine Occult Blood (Negative) Urine Nitrate (Negative) Urine Bilirubin (NEGATIVE) Urine Urobilinogen (0.2) E.U./dL Ur Leukocyte Esterase (NEGATIVE) Urine RBC (0-5/HPF) Urine WBC (0-5/HPF) Ur Squamous Epith Cells (0-5/HPF) Urine Bacteria (None) Urine Mucus (Negative) Ur Culture Indicated? Ur Chlamydia DNA (PCR) Influenza A (RT-PCR) (NEGATIVE) Influenza B (RT-PCR) (NEGATIVE) N gonorrhoeae DNA (PCR) 01/05/20 01/05/20 01/05/20 Range/Units 10:32 11:32 11:32 WBC (4.5-11.0) X10^3/uL RBC (4.0-5.2) X10^6/uL Hgb (12.0-16.0) g/dL Hct (36-46) % MCV (80-100) fL MCH (26-34) PG MCHC (30-36) % RDW (11.6-14.8) % Plt Count (150-400) X10^3/uL Neut % (Auto) (50-75) % Lymph % (Auto) (25-40) % [place] % (Auto) (3-14) % Eos % (Auto) (2-4) % Baso % (Auto) (0-2) % Neut # (Auto) (5050-3293) /uL Lymph # (Auto) (8353-9161) /uL [place] # (Auto) (0-900) /uL Eos # (Auto) (0-450) /uL Baso # (Auto) (0-100) /uL PT (10.1-12.7) SECONDS INR (0.9-1.3) APTT (26.4-36.2) SECONDS Sodium (137-145) mmol/L Potassium (3.4-5.1) mmol/L Chloride (98-107) mmol/L Carbon Dioxide (22-32) mmol/L BUN (7-17) mg/dL Creatinine (0.52-1.04) mg/dL Estimated GFR (>60) mL/min BUN/Creatinine Ratio (6-22) Glucose (70-100) mg/dL Lactate 1.3 (0.7-2.1) mmol/L Calcium (8.4-10.2) mg/dL Total Bilirubin (0.2-1.3) mg/dL AST (14-36) IU/L ALT (<35) IU/L Alkaline Phosphatase (38-126) U/L Total Protein (6.3-8.2) g/dL Albumin (3.5-5.0) g/dL Globulin (1.7-4.1) g/dL Albumin/Globulin Ratio (1.0-2.8) Lipase (23-300) U/L Procalcitonin < 0.05 (<0.5) ng/mL HCG, Quant < 2.39 mIU/mL Urine Color Urine Appearance Urine pH (4.5-8.0) Ur Specific [place] (1.000-1.035) Urine Protein (Negative) Urine Glucose (UA) (Negative) g/dL Urine Ketones (NEGATIVE) Urine Occult Blood (Negative) Urine Nitrate (Negative) Urine Bilirubin (NEGATIVE) Urine Urobilinogen (0.2) E.U./dL Ur Leukocyte Esterase (NEGATIVE) Urine RBC (0-5/HPF) Urine WBC (0-5/HPF) Ur Squamous Epith Cells (0-5/HPF) Urine Bacteria (None) Urine Mucus (Negative) Ur Culture Indicated? Ur Chlamydia DNA (PCR) Influenza A (RT-PCR) (NEGATIVE) Influenza B (RT-PCR) (NEGATIVE) N gonorrhoeae DNA (PCR) 01/05/20 01/05/20 01/05/20 Range/Units 12:32 12:32 14:06 WBC (4.5-11.0) X10^3/uL RBC (4.0-5.2) X10^6/uL Hgb (12.0-16.0) g/dL Hct (36-46) % MCV (80-100) fL MCH (26-34) PG MCHC (30-36) % RDW (11.6-14.8) % Plt Count (150-400) X10^3/uL Neut % (Auto) (50-75) % Lymph % (Auto) (25-40) % [place] % (Auto) (3-14) % Eos % (Auto) (2-4) % Baso % (Auto) (0-2) % Neut # (Auto) (9490-3725) /uL Lymph # (Auto) (2799-4575) /uL [place] # (Auto) (0-900) /uL Eos # (Auto) (0-450) /uL Baso # (Auto) (0-100) /uL PT (10.1-12.7) SECONDS INR (0.9-1.3) APTT (26.4-36.2) SECONDS Sodium (137-145) mmol/L Potassium (3.4-5.1) mmol/L Chloride (98-107) mmol/L Carbon Dioxide (22-32) mmol/L BUN (7-17) mg/dL Creatinine (0.52-1.04) mg/dL Estimated GFR (>60) mL/min BUN/Creatinine Ratio (6-22) Glucose (70-100) mg/dL Lactate (0.7-2.1) mmol/L Calcium (8.4-10.2) mg/dL Total Bilirubin (0.2-1.3) mg/dL AST (14-36) IU/L ALT (<35) IU/L Alkaline Phosphatase (38-126) U/L Total Protein (6.3-8.2) g/dL Albumin (3.5-5.0) g/dL Globulin (1.7-4.1) g/dL Albumin/Globulin Ratio (1.0-2.8) Lipase (23-300) U/L Procalcitonin (<0.5) ng/mL HCG, Quant mIU/mL Urine Color Yellow Urine Appearance Clear Urine pH 6.0 (4.5-8.0) Ur Specific [place] 1.015 (1.000-1.035) Urine Protein Negative (Negative) Urine Glucose (UA) Negative (Negative) g/dL Urine Ketones 1+ H (NEGATIVE) Urine Occult Blood Negative (Negative) Urine Nitrate Negative (Negative) Urine Bilirubin Negative (NEGATIVE) Urine Urobilinogen 0.2 (0.2) E.U./dL Ur Leukocyte Esterase Negative (NEGATIVE) Urine RBC None seen (0-5/HPF) Urine WBC None seen (0-5/HPF) Ur Squamous Epith Cells 0-1 /hpf (0-5/HPF) Urine Bacteria Occasional (0-1) (None) Urine Mucus 1+ H (Negative) Ur Culture Indicated? Cult not indicated Ur Chlamydia DNA (PCR) Not detected Influenza A (RT-PCR) Flu a negative (NEGATIVE) Influenza B (RT-PCR) Flu b negative (NEGATIVE) N gonorrhoeae DNA (PCR) Not detected Discharge Plan Departure Patient Disposition: Admitted As Inpatient Clinical Impression: Abdominal pain Discharge Date/Time: 01/05/20 21:01 Admit Date/Time: 01/05/20 19:57 Admit Provider: Antonette Byers
[2020-01-05] MEDS: SODIUM CHLORIDE 0.9% 1,000 ML 1000 ML IV ×2 (11:27→13:13)
--- NOTE | 2020-01-05 11:27 | DI.CT.S_ITS ---
PROCEDURE: CT ABDOMEN PELVIS W CON INDICATIONS: RLQ px, fever, WBC elevated, r/o appendicitis TECHNIQUE: After the administration of oral and intravenous contrast, 5 mm thick sections acquired from the diaphragms to the symphysis. 5 mm thick coronal and sagittal reformats were performed. For radiation dose reduction, the following was used: automated exposure control, adjustment of mA and/or kV according to patient size. COMPARISON: None. FINDINGS: Image quality: Diagnostic. ABDOMEN: Lung bases: Lung bases are clear. Heart size is normal. Solid organs: Liver is normal in size and enhancement. However, does appear to be a small area of fatty infiltration involving the left hepatic lobe along the falciform ligament. Gallbladder is not enlarged or inflamed. Biliary system is non-dilated. Pancreas enhances normally. Spleen is normal in size and enhancement. No adrenal nodules. Kidneys are normal in size and enhancement, without hydronephrosis. Incidental note is made of a small simple appearing renal cyst on the inferior portion of the left kidney that measures up to approximately 8 mm in diameter. Peritoneum and bowel: Stomach is unremarkable and a few small bowel loops within the left upper quadrant are borderline prominent and demonstrates mild mucosal enhancement. Similar appearance is noted involving the small bowel loops within the pelvis. No sig thickening or pathologically dilated bowel loops are identified. The appendix is well-visualized and normal (image 255, series 2). Nodes and vessels: No retroperitoneal or mesenteric adenopathy. Aorta and inferior vena cava are normal in caliber. Bones: No acute fracture or suspicious osseous lesions are PELVIS: Genitourinary: Bladder wall thickness is normal. There may be a small uterine fibroid on the posterior margin of the uterus. Miscellaneous: No inguinal hernias or adenopathy. Bones: No suspicious bony lesions. No vertebral body compression fractures. IMPRESSION: 1. No definite acute abnormality within the abdomen or pelvis. 2. Questionable enteritis. 3. No bowel obstruction. Normal appendix. 4. Possible small intradural fibroid. Dictated by: Jarvis Walden M.D. on 01/05/2020 at 11:33 Approved by: Jarvis Walden M.D. on 01/05/2020 at 11:39
[2020-01-05] MEDS: ONDANSETRON 4 MG/2 ML INJ IV (11:28)
[2020-01-05 11:47] LABS: Lactate (Lactic Acid) 1.3 mmol/L (0.7-2.1)
[2020-01-05 11:57] LABS: HCG Quantitative /Beta subunit < 2.39 mIU/mL
[2020-01-05 12:19] LABS: Procalcitonin < 0.05 ng/mL (<0.5)
[2020-01-05] MEDS: KETOROLAC 60 MG/2 ML VIAL 30 MG IV (12:39)
[2020-01-05 12:51] LABS: Appearance Urine UA CLEAR; Bilirubin Urine UA NEGATIVE (NEGATIVE); Color Urine UA YELLOW; Glucose Urine UA NEGATIVE (Negative); Ketones Urine UA 1+ (NEGATIVE); Leukocyte Esterase Urine UA NEGATIVE (NEGATIVE); Nitrite Urine UA NEGATIVE (Negative); Occult Blood Urine UA NEGATIVE (Negative); Protein Urine UA NEGATIVE (Negative); Specific Gravity Urine UA 1.015 (1.000-1.035); Urobilinogen Urine UA 0.2 E.U./dL (0.2)
[2020-01-05 12:58] LABS: RBC Urine None Seen (0-5/HPF); WBC Urine None Seen (0-5/HPF)
[2020-01-05 13:04] LABS: Bacteria Urine Occasional (0-1); Culture Indicated Urine Cult Not Indicated; Mucus Urine 1+ (Negative); Squamous Epithelial Cell Urine 0-1 /HPF (0-5/HPF)
[2020-01-05] MEDS: ACETAMINOPHEN 325 MG TABLET 975 MG PO (13:12)
--- NOTE | 2020-01-05 13:51 | DI.RAD.S_ITS ---
PROCEDURE: XR CHEST 1V INDICATIONS: SOB, Tachycardia, Cough TECHNIQUE: One view of the chest was acquired. COMPARISON: None. FINDINGS: Surgical changes and devices: None. Lungs and pleura: Lungs are clear. No pleural effusions or pneumothorax. Mediastinum: Mediastinal contours appear normal. Heart size is normal. Bones and chest wall: No suspicious bony lesions. Overlying soft tissues appear unremarkable. IMPRESSION: No acute cardiopulmonary pathology. Dictated by: David Maya M.D. on 01/05/2020 at 14:14 Approved by: David Maya M.D. on 01/05/2020 at 14:14
[2020-01-05 14:48] LABS: Influenza A - CEPHEID Flu A NEGATIVE (NEGATIVE); Influenza B - CEPHEID Flu B NEGATIVE (NEGATIVE)
--- NOTE | 2020-01-05 15:03 | DI.US.S_ITS ---
PROCEDURE: US PELVIC COMPLETE INDICATIONS: RLQ PAIN. POSSIBLE PID TECHNIQUE: Real-time scanning was performed of the pelvic organs, with image documentation. Additional endovaginal scanning was necessary due to incomplete visualization of the adnexal and endometrial structures by transabdominal scanning. COMPARISON: [facility], CT, CT ABDOMEN PELVIS W CON, 01/05/2020, 12:01. FINDINGS: Transabdominal scanning: Limited scanning through the kidneys shows no hydronephrosis. No pathologic free abdominal or pelvic fluid. Endovaginal scanning: Uterus: Uterus is normal in size at 4.4 x 2.6 x 4.0 cm. The endometrium measures 3 mm in combined thickness. No focal myometrial lesions are identified. There is no significant fluid seen within the endometrium. Ovaries: The right ovary measures 2.0 x 2.8 x 2.8 cm. The left ovary measures 2.1 x 1.6 x 1.4 cm. Both ovaries are normal in size without a cystic or solid abnormality. Blood flow is demonstrated to both ovaries, which have a normal arterial Doppler waveform. IMPRESSION: The uterus and ovaries are within normal limits. Dictated by: Jarvis Walden M.D. on 01/05/2020 at 15:43 Approved by: Jarvis Walden M.D. on 01/05/2020 at 15:44
[2020-01-05] MEDS: LACTATED RINGERS 1,000 ML 200 ML IV ×2 (15:31→21:18)
[2020-01-05] MEDS: MORPHINE 2 MG/ML INJ IV (15:44)
[2020-01-05] MEDS: PIPERACILLIN-TAZO 3.375 GM/50 ML FROZ.PIGGY IV (16:44)
[2020-01-05] MEDS: MORPHINE 2 MG/ML INJ (18:31)
[2020-01-05] MEDS: ONDANSETRON 4 MG/2 ML INJ (18:31)
[2020-01-05 18:55] LABS: Urine N gonorrhoeae NOT DETECTED
[2020-01-05 19:02] LABS: Urine Chlamydia NOT DETECTED
--- NOTE | 2020-01-05 20:56 | PC.NURSE ---
Attempted to call report at [phone], was told RN was on break and would call back. Second attempt to call report at [phone] was told RN would call back. 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
[2020-01-05 21:16] LABS: Alanine Aminotransferase 30 IU/L (<35); Albumin 3.6 g/dL (3.5-5.0); Albumin Globulin Ratio 1.2 (1.0-2.8); Alkaline Phosphatase 72 U/L (38-126); Aspartate Aminotransferase 36 IU/L (14-36); BUN Creatinine Ratio 16.7 (6-22); Bilirubin Total 1.1 mg/dL (0.2-1.3); Blood Urea Nitrogen 10 mg/dL (7-17); Calcium 8.8 mg/dL (8.4-10.2); Carbon Dioxide 22 mmol/L (22-32); Chloride 104 mmol/L (98-107); Estimated Glomerular Filt Rate > 60.0 mL/min (>60); Glucose 75 mg/dL (70-100); HEMOLYSIS < 15 (0-50); Potassium 3.6 mmol/L (3.4-5.1); Sodium 137 mmol/L (137-145); Total Protein 6.6 g/dL (6.3-8.2)
[2020-01-05] MEDS: GENTAMICIN 140 MG in SODIUM CHLORIDE 0.9% 100 ML 103.5 ML IV (21:23)
--- NOTE | 2020-01-05 22:16 | PM.GYNHP.1 ---
History of Present Illness History of Present Illness Narrative: Debbie Thrasher is a 19 year old female who presented to the ED this morning with severe right-side lower abdominal pain and fever. Of note she had a vaginal delivery in July, is still breast-feeding She 1st had onset of symptoms 3-4 days ago. She noted a mild cough and nasal congestion a few days ago. She then noted lower abdominal cramping in the midline which felt similar to menstrual cramping, but she was not due for her menses. Last night she felt nauseated, but no significant pain at that time. Early this morning she had onset of severe right-sided pain. She also reports discomfort in the very low in the midline, spreads across her lower abdomen. Her right-sided pain is the most uncomfortable. She had a fever of 102F with chills at home this a.m. Reports temp 103? on triage here, high as reported to me was 101.8. She has had continued nausea, no emesis. Nausea is now decreased to very mild. She is with the same long-term partner, he is currently deployed. She was last sexually active November 29. Review of systems: Positive for fever and chills, nausea and lower abdominal pain as above. Denies change and bowel movements, normal BMs. Denies emesis, breast discomfort, dysuria, urinary frequency or abnormal vaginal discharge. [facility] Medical History Migraine headache (Acute) Vaginal delivery (Acute ~07/2019) Social History household members: family and children Smoking Status: Never smoker alcohol intake: never Meds Home Medications and Allergies Home Medications Medication Instructions Recorded Confirmed Type No Known Home Medications 01/05/20 01/05/20 History Allergies Allergy/AdvReac Type Severity Reaction Status Date / Time No Known Drug Allergies Allergy Verified 01/05/20 22:26 Exam Vital Signs (past 8 hours): - 01/05/20 15:33 01/05/20 16:11 01/05/20 16:47 Temperature 99.2 F Pulse Rate 125 H 138 H 130 H Respiratory Rate 20 20 20 Blood Pressure [Left Arm] 99/70 108/70 111/59 L Pulse Oximetry 99 99 99 01/05/20 18:22 01/05/20 18:31 01/05/20 19:54 Temperature 99.5 F 99.5 F Pulse Rate 129 H 127 H Respiratory Rate 18 17 Blood Pressure [Left Arm] 111/50 L 108/56 L Pulse Oximetry 99 100 01/05/20 20:18 Temperature 98.3 F Pulse Rate Respiratory Rate Blood Pressure [Left Arm] Pulse Oximetry Oxygen Delivery Method Room Air Narrative Exam Narrative: General: Ill-appearing, lying on her side. Abdomen soft, nondistended. Mildly tender diffusely in the lower abdomen, greatest on her right side Pelvic exam: Speculum exam deferred, no noted significant vaginal discharge seen by PA. Bimanual examination: Positive for cervical motion tenderness. Uterus is anteverted, 9 cm size, tender, negative for palpable masses. Adnexa with tenderness bilaterally, no palpable masses bilaterally Serum test negative Urine GC/chlamydia screen negative Urinalysis negative, including negative for blood Influenza screen a/b negative CT scan with normal appearing appendix. Some loops of bowel and left upper upper and lower abdomen borderline prominent with signs of possible enteritis, see report. Pelvic ultrasound normal uterus and ovaries. No signs of hydronephrosis Objective Labs Result Diagrams: 01/05/20 10:32 01/05/20 20:50 Labs: Laboratory Results - last 24 hr 01/05/20 01/05/20 01/05/20 10:32 10:32 10:32 WBC 14.3 H RBC 4.88 Hgb 14.5 Hct 42.8 MCV 87.7 MCH 29.7 MCHC 33.9 RDW 14.6 Plt Count 246 Neut % (Auto) 92.3 H Lymph % (Auto) 3.[address] [place] % (Auto) 3.7 Eos % (Auto) 0.5 L Baso % (Auto) 0.2 Neut # (Auto) 97737 H Lymph # (Auto) [address] [place] # (Auto) 500 Eos # (Auto) 100 Baso # (Auto) 0 PT 12.5 INR 1.1 APTT 32 Sodium 140 Potassium 4.2 Chloride 104 Carbon Dioxide 25 BUN 15 Creatinine 0.50 L Estimated GFR > 60.0 BUN/Creatinine Ratio 30.0 H Glucose 82 Lactate Calcium 9.8 Total Bilirubin 0.7 AST 39 H ALT 37 H Alkaline Phosphatase 96 Total Protein 9.0 H Albumin 4.9 Globulin 4.1 Albumin/Globulin Ratio 1.2 Lipase 95 Procalcitonin HCG, Quant Urine Color Urine Appearance Urine pH Ur Specific [place] Urine Protein Urine Glucose (UA) Urine Ketones Urine Occult Blood Urine Nitrate Urine Bilirubin Urine Urobilinogen Ur Leukocyte Esterase Urine RBC Urine WBC Ur Squamous Epith Cells Urine Bacteria Urine Mucus Ur Culture Indicated? Ur Chlamydia DNA (PCR) Influenza A (RT-PCR) Influenza B (RT-PCR) N gonorrhoeae DNA (PCR) 01/05/20 01/05/20 01/05/20 10:32 11:32 11:32 WBC RBC Hgb Hct MCV MCH MCHC RDW Plt Count Neut % (Auto) Lymph % (Auto) [place] % (Auto) Eos % (Auto) Baso % (Auto) Neut # (Auto) Lymph # (Auto) [place] # (Auto) Eos # (Auto) Baso # (Auto) PT INR APTT Sodium Potassium Chloride Carbon Dioxide BUN Creatinine Estimated GFR BUN/Creatinine Ratio Glucose Lactate 1.3 Calcium Total Bilirubin AST ALT Alkaline Phosphatase Total Protein Albumin Globulin Albumin/Globulin Ratio Lipase Procalcitonin < 0.05 HCG, Quant < 2.39 Urine Color Urine Appearance Urine pH Ur Specific [place] Urine Protein Urine Glucose (UA) Urine Ketones Urine Occult Blood Urine Nitrate Urine Bilirubin Urine Urobilinogen Ur Leukocyte Esterase Urine RBC Urine WBC Ur Squamous Epith Cells Urine Bacteria Urine Mucus Ur Culture Indicated? Ur Chlamydia DNA (PCR) Influenza A (RT-PCR) Influenza B (RT-PCR) N gonorrhoeae DNA (PCR) 01/05/20 01/05/20 01/05/20 12:32 12:32 14:06 WBC RBC Hgb Hct MCV MCH MCHC RDW Plt Count Neut % (Auto) Lymph % (Auto) [place] % (Auto) Eos % (Auto) Baso % (Auto) Neut # (Auto) Lymph # (Auto) [place] # (Auto) Eos # (Auto) Baso # (Auto) PT INR APTT Sodium Potassium Chloride Carbon Dioxide BUN Creatinine Estimated GFR BUN/Creatinine Ratio Glucose Lactate Calcium Total Bilirubin AST ALT Alkaline Phosphatase Total Protein Albumin Globulin Albumin/Globulin Ratio Lipase Procalcitonin HCG, Quant Urine Color Yellow Urine Appearance Clear Urine pH 6.0 Ur Specific [place] 1.015 Urine Protein Negative Urine Glucose (UA) Negative Urine Ketones 1+ H Urine Occult Blood Negative Urine Nitrate Negative Urine Bilirubin Negative Urine Urobilinogen 0.2 Ur Leukocyte Esterase Negative Urine RBC None seen Urine WBC None seen Ur Squamous Epith Cells 0-1 /hpf Urine Bacteria Occasional (0-1) Urine Mucus 1+ H Ur Culture Indicated? Cult not indicated Ur Chlamydia DNA (PCR) Not detected Influenza A (RT-PCR) Flu a negative Influenza B (RT-PCR) Flu b negative N gonorrhoeae DNA (PCR) Not detected 01/05/20 20:50 WBC RBC Hgb Hct MCV MCH MCHC RDW Plt Count Neut % (Auto) Lymph % (Auto) [place] % (Auto) Eos % (Auto) Baso % (Auto) Neut # (Auto) Lymph # (Auto) [place] # (Auto) Eos # (Auto) Baso # (Auto) PT INR APTT Sodium 137 Potassium 3.6 Chloride 104 Carbon Dioxide 22 BUN 10 Creatinine 0.60 Estimated GFR > 60.0 BUN/Creatinine Ratio 16.7 Glucose 75 Lactate Calcium 8.8 Total Bilirubin 1.1 AST 36 ALT 30 Alkaline Phosphatase 72 Total Protein 6.6 Albumin 3.6 Globulin 3.0 Albumin/Globulin Ratio 1.2 Lipase Procalcitonin HCG, Quant Urine Color Urine Appearance Urine pH Ur Specific [place] Urine Protein Urine Glucose (UA) Urine Ketones Urine Occult Blood Urine Nitrate Urine Bilirubin Urine Urobilinogen Ur Leukocyte Esterase Urine RBC Urine WBC Ur Squamous Epith Cells Urine Bacteria Urine Mucus Ur Culture Indicated? Ur Chlamydia DNA (PCR) Influenza A (RT-PCR) Influenza B (RT-PCR) N gonorrhoeae DNA (PCR) Assessment & Plan Assessment and plan (1) Pelvic infection in female: Problem details: Lower abdominal pain with fever. Will treat for likely pelvic infection, PID. I was called after an extensive workup with negative findings, but patient with cervical motion tenderness and general tenderness on pelvic exam. Though this may be due to general peritoneal discomfort, and my exam is also suspicious for pelvic infection, PID. Admit She is , thus will to use clindamycin/gentamicin as antibiotic choice to cover PID Continue IV fluids Less nausea, now hungry. Will let her try a regular diet as tolerated Current visit: Yes Status: Acute
[2020-01-05] MEDS: LACTATED RINGERS 1,000 ML 100 ML IV (23:24)
[2020-01-05] MEDS: CLINDAMYCIN 900 MG/50 ML PIGGYBACK 50 MG IV (23:24)
[2020-01-06] VITALS (8 sets, daily range): BP systolic 92–103; BP diastolic 45–61; PULSE 84–122; RESP 16–20; TEMP 36.2–38.2; O2SAT 96–99
--- NOTE | 2020-01-06 01:28 | PC.NURSE ---
Addendum entered by Ruth Dimas R.N. 01/06/20 06:01: Complains of nausea and 6/10 right LQ abdominal pain; medicated with Zofran and Vicodin. Temp rechecked and still elevated at 100.4. Addendum entered by Ruth Dimas R.N. 01/06/20 04:52: Temperture 100.8; medicated with Tylenol. Original Note: Patient is alert and oriented. Breath sounds CTA but diminished especially in lower lobes; RA sat 99%. HRR but tachy at 116 bpm. BP low at 99/45 but is asymptomatic. Denies nausea. BT present and abdomen is soft; denies abdominal pain but is tender to RLQ with palpation. Denies dysuria, frequency or urgency with urination. Able to turn self in bed. Fall risk score is moderate; patient verbalizes agreement to calling for SBA when up to bathroom during the night. States she earlier had numbness in feet (upon arrival in ER) but currently just feels tingling in feet. Low grade temp of 99.4 but declines Tylenol.
[2020-01-06] MEDS: ACETAMINOPHEN 325 MG TABLET 650 MG PO (04:48)
[2020-01-06] MEDS: ONDANSETRON 4 MG/2 ML INJ IV (05:55)
[2020-01-06] MEDS: CLINDAMYCIN 900 MG/50 ML PIGGYBACK 50 MG IV ×3 (05:55→22:15)
[2020-01-06] MEDS: HYDROCODONE/ACET 5/325 TABLET 1 TAB PO ×3 (05:59→17:28)
[2020-01-06 06:44] LABS: Add Manual Diff / Slide Review NO; Basophils Absolute Auto 0 /uL (0-100); Basophils Percent Auto 0.2 % (0-2); Eosinophils Absolute Auto 0 /uL (0-450); Eosinophils Percent Auto 0.5 % (2-4); Hematocrit 34.7 % (36-46); Hemoglobin 11.8 g/dL (12.0-16.0); Lymphocytes Absolute Auto 600 /uL (1100-4500); Lymphocytes Percent Auto 7.2 % (25-40); Mean Corpuscular HGB Conc 34.1 % (30-36); Mean Corpuscular Hemoglobin 29.6 PG (26-34); Mean Corpuscular Volume 86.8 fL (80-100); Monocytes Absolute Auto 600 /uL (0-900); Monocytes Percent Auto 7.3 % (3-14); Neutrophils Absolute Auto 7600 /uL (1500-7000); Neutrophils Percent Auto 84.8 % (50-75); Platelet Count 191 X10^3/uL (150-400); Red Cell Distribution Width 14.3 % (11.6-14.8); White Blood Cell Count 8.9 X10^3/uL (4.5-11.0)
[2020-01-06] MEDS: LACTATED RINGERS 1,000 ML 100 ML IV ×2 (09:00→20:09)
--- NOTE | 2020-01-06 11:03 | P.PN_ITS ---
Subjective Subjective Date Patient Seen: 01/06/20 Time Patient Seen: 10:40 Interval history: Debbie reports that her abdominal pain is much decreased today. She reports that she was able to sleep last night with the pain medication. Denies further nausea. Tolerating a regular diet. Denies fever chills. T max overnight 100.8 Exam Vital Signs (past 8 hours): - 01/06/20 04:20 01/06/20 04:48 01/06/20 06:00 Temperature 100.8 F H 100.8 F H 100.4 F H Pulse Rate 112 H Respiratory Rate 16 Blood Pressure 100/60 Pulse Oximetry 97 01/06/20 07:54 Temperature 98 F Pulse Rate 109 H Respiratory Rate 16 Blood Pressure 100/61 Pulse Oximetry 96 Oxygen Delivery Method Room Air Oxygen Flow Rate 0 Narrative Exam Narrative: General: Well-appearing female, holding baby who is visiting Back: No CVA tenderness bilaterally Abdomen: Soft, nondistended, mild tenderness diffusely over lower abdomen, decreased Extremities negative for edema Objective Labs Result Diagrams: 01/06/20 06:30 01/05/20 20:50 Labs: Laboratory Results - last 24 hr 01/05/20 01/05/20 01/05/20 10:32 11:32 11:32 WBC RBC Hgb Hct MCV MCH MCHC RDW Plt Count Neut % (Auto) Lymph % (Auto) [place] % (Auto) Eos % (Auto) Baso % (Auto) Neut # (Auto) Lymph # (Auto) [place] # (Auto) Eos # (Auto) Baso # (Auto) Sodium Potassium Chloride Carbon Dioxide BUN Creatinine Estimated GFR BUN/Creatinine Ratio Glucose Lactate 1.3 Calcium Total Bilirubin AST ALT Alkaline Phosphatase Total Protein Albumin Globulin Albumin/Globulin Ratio Procalcitonin < 0.05 HCG, Quant < 2.39 Urine Color Urine Appearance Urine pH Ur Specific [place] Urine Protein Urine Glucose (UA) Urine Ketones Urine Occult Blood Urine Nitrate Urine Bilirubin Urine Urobilinogen Ur Leukocyte Esterase Urine RBC Urine WBC Ur Squamous Epith Cells Urine Bacteria Urine Mucus Ur Culture Indicated? Ur Chlamydia DNA (PCR) Influenza A (RT-PCR) Influenza B (RT-PCR) N gonorrhoeae DNA (PCR) 01/05/20 01/05/20 01/05/20 12:32 12:32 14:06 WBC RBC Hgb Hct MCV MCH MCHC RDW Plt Count Neut % (Auto) Lymph % (Auto) [place] % (Auto) Eos % (Auto) Baso % (Auto) Neut # (Auto) Lymph # (Auto) [place] # (Auto) Eos # (Auto) Baso # (Auto) Sodium Potassium Chloride Carbon Dioxide BUN Creatinine Estimated GFR BUN/Creatinine Ratio Glucose Lactate Calcium Total Bilirubin AST ALT Alkaline Phosphatase Total Protein Albumin Globulin Albumin/Globulin Ratio Procalcitonin HCG, Quant Urine Color Yellow Urine Appearance Clear Urine pH 6.0 Ur Specific [place] 1.015 Urine Protein Negative Urine Glucose (UA) Negative Urine Ketones 1+ H Urine Occult Blood Negative Urine Nitrate Negative Urine Bilirubin Negative Urine Urobilinogen 0.2 Ur Leukocyte Esterase Negative Urine RBC None seen Urine WBC None seen Ur Squamous Epith Cells 0-1 /hpf Urine Bacteria Occasional (0-1) Urine Mucus 1+ H Ur Culture Indicated? Cult not indicated Ur Chlamydia DNA (PCR) Not detected Influenza A (RT-PCR) Flu a negative Influenza B (RT-PCR) Flu b negative N gonorrhoeae DNA (PCR) Not detected 01/05/20 01/06/20 20:50 06:30 WBC 8.9 RBC 4.00 Hgb 11.8 L Hct 34.7 L MCV 86.8 MCH 29.6 MCHC 34.1 RDW 14.3 Plt Count 191 Neut % (Auto) 84.8 H Lymph % (Auto) 7.2 L [place] % (Auto) 7.3 Eos % (Auto) 0.5 L Baso % (Auto) 0.2 Neut # (Auto) 7600 H Lymph # (Auto) 600 L [place] # (Auto) 600 Eos # (Auto) 0 Baso # (Auto) 0 Sodium 137 Potassium 3.6 Chloride 104 Carbon Dioxide 22 BUN 10 Creatinine 0.60 Estimated GFR > 60.0 BUN/Creatinine Ratio 16.7 Glucose 75 Lactate Calcium 8.8 Total Bilirubin 1.1 AST 36 ALT 30 Alkaline Phosphatase 72 Total Protein 6.6 Albumin 3.6 Globulin 3.0 Albumin/Globulin Ratio 1.2 Procalcitonin HCG, Quant Urine Color Urine Appearance Urine pH Ur Specific [place] Urine Protein Urine Glucose (UA) Urine Ketones Urine Occult Blood Urine Nitrate Urine Bilirubin Urine Urobilinogen Ur Leukocyte Esterase Urine RBC Urine WBC Ur Squamous Epith Cells Urine Bacteria Urine Mucus Ur Culture Indicated? Ur Chlamydia DNA (PCR) Influenza A (RT-PCR) Influenza B (RT-PCR) N gonorrhoeae DNA (PCR) Assessment & Plan Assessment & Plan narrative: Pelvic infection, improving. T-max decreasing, WBC has decreased to normal and patient's discomfort is improving Plan: Continue clindamycin/gentamicin. I discussed hospitalization at least until tomorrow, and till fever resolves and pain continues to be improved.
--- NOTE | 2020-01-06 12:15 | PC.NURSE ---
Nurse Note Patient A&O this shift. Patient continues to have some pain to right lower abdomen, which she states is most noticeable as ordered pain medication wears off. Patient states that ordered medication keeps pain tolerable. Patient afebrile this shift as of this time. Care is ongoing.
--- NOTE | 2020-01-06 12:27 | CM.DANOTE ---
DCP Assessment: EMR reviewed: Patient is a 19 yr old female who was admitted for appendectomy and PID. patients PCP is Dr Cain and Dr. Kyle. Cm/RN met with patient at the bedside and explained Role. Patient was alert and oriented x3 at time of CM/RN visit. Patient currently lives in a 2 story home but is not having issues with ambulating at this time. Patient is I with all ADL's and drives. I: [employer] healthy options and medicaid Plan: D/C home with the help from her mother when medically stable. No identified D/C planning needs noted at this time and CM department will continue to follow to assist with any new d/c planning needs that may arise. Joann Best RN Discharge Planning/Care Management CM Discharge Assessment Start: 01/06/20 12:24 Freq: Status: Active Protocol: Document 01/06/20 12:24 HS (Rec: 01/06/20 12:27 HS [id number]) Discharge Planning Assessment Assigned Storage Battery Tester Joann Best Rn DPOA/Assigned Designee Name Margie Lea Contact Information [phone] Advance Directives? No History Provided By Patient,Medical Record Has Patient been admitted in last 30 No days? Prior Living Arrangements House Household Members family,children Type of transporation used prior to Drives own vehicle admit Independent with ADL's Yes Is patient alert and oriented? Yes Caregiver for Another Yes: patient has a 7 month old child who is breast feeding still Barriers to Discharge No Discharge Plan Home Referrals Initiated None needed Whiteboard Updated in Patient Room with Yes name and ext. # of Storage Battery Tester Review Status In Process Next Review Type Continued Stay Review
[2020-01-06] MEDS: GENTAMICIN 140 MG in SODIUM CHLORIDE 0.9% 100 ML 103 ML IV (20:40)
[2020-01-07 00:20] VITALS: BP 109/66; PULSE 91; RESP 16; TEMP 36.5; O2SAT 100
[2020-01-07] MEDS: ONDANSETRON 4 MG/2 ML INJ IV (04:54)
[2020-01-07 05:00] VITALS: BP 109/64; PULSE 81; RESP 16; TEMP 36.6; O2SAT 97
[2020-01-07] MEDS: CLINDAMYCIN 900 MG/50 ML PIGGYBACK 50 MG IV (05:14)
[2020-01-07 07:40] VITALS: BP 98/63; PULSE 83; RESP 16; TEMP 36.4; O2SAT 98
--- NOTE | 2020-01-07 09:04 | PM.DS.1 ---
History of Present Illness History of Present Illness Date Patient Seen: 01/07/20 Time Patient Seen: 09:04 Chief complaint: abdominal pain, sick Narrative: The patient is a 19-year-old who presented with acute onset of right lower quadrant pain. She was seen in the emergency room with a temperature of a 101.6?. Her white count was 20,000. She was admitted with presumed diagnosis of PID Discharge Providers Provider Date of admission: 01/05/20 19:57 Discharge Date: 01/07/20 Discharge provider: Vinny Mohr MD Summary Hospital Course Discharge Diagnosis: Right lower quadrant pain with evidence of infection Hospital Course: The patient is a 19-year-old admitted with acute onset of right lower quadrant pain. She was seen in the emergency room in worked [place] [address]. Her temperature was 101.6?. Her lactate was normal at 1.3. Procalcitonin was normal. She had very mild elevations of her liver function test. Ultrasound of her pelvis showed no real normal tubes and ovaries and uterus. CT scan showed normal appendix. Chest x-ray was normal. Patient was admitted and received IV antibiotics in the forms of clindamycin and gentamicin. She evidently had a penicillin allergy. Her white count went from 20,000 tto 14,000 to 8000. Her lactate and procalcitonin is were always low. Her abdominal pain lessened considerably. GC and chlamydia DNA were negative Status at Discharge Cognitive/behavioral status at discharge: oriented Functional status at discharge: independent ambulation Overall status at discharge: patient is progressing back to baseline Time Spent with Patient Time spent: Less than 30 minutes Exam Vital Signs (past 8 hours): - 01/07/20 05:00 Temperature 97.9 F Pulse Rate 81 Respiratory Rate 16 Blood Pressure 109/64 Pulse Oximetry 97 Oxygen Delivery Method Room Air Oxygen Flow Rate 0 Narrative Exam Narrative: Examination was confined to the abdomen. Abdomen was soft and not distended. Bowel sounds are excellent. Patient had mild right lower quadrant pain without rebound. Objective Labs Result Diagrams: 01/06/20 06:30 01/05/20 20:50 Discharge Plan Discharge Plan Patient Disposition: Home Discharge orders & Medications Prescriptions: New oxycodone 10 mg tablet 10 mg PO Q6H PRN (Reason: pain) Qty: 10 RF: 0 docusate sodium [Colace] 100 mg capsule 100 mg PO DAILY Qty: 7 RF: 0 clindamycin HCl 300 mg capsule 600 mg PO TID Qty: 20 RF: 0 doxycycline hyclate 100 mg capsule 100 mg PO BID Qty: 10 RF: 0 No Action No Known Home Medications RF: 0 Follow up/Referrals: Vinny Mohr MD [Physician] - 01/10/20 Discharge Health Status Multidrug resistant organism: No MDRO Diet/Activity/Treatments Diet: Diet as Tolerated Activity: Up ad lyudmila Other treatments: Antibiotic therapy Skin/Wound/Dressing Care Report to your healthcare provider any signs of infection, such as:: chills, fever, increased pain, unusual drainage and unusual redness Dressing: None Visit Report/Discharge Packet Instructions: Chronic Pelvic Pain-Female, DI for Pelvic Inflammatory Disease, DI for Prescription Opioid Use
--- NOTE | 2020-01-07 10:06 | PC.NURSE ---
Patient educated about PID and medications, complications and follow up. Patient discharged home with mother Margie. Patient was able to ambulate independently and walk to parking lot with mother at her side.
== END 2020-01-07 10:15 | disposition home or self-care (01) | DRG 531 ==
LOC: ED 11:08 → AC 19:58
PROVIDERS: Emergency Medicine; Admitting Provider Obstetrics & Gynecology; Emergency Provider Nurse Practitioner; Referring Provider Nurse Practitioner; Visit Provider Obstetrics & Gynecology
DX: N73.9 Female pelvic inflammatory disease, unspecified (principal); R00.0 Tachycardia, unspecified
CPT/HCPCS: 36415; 71045; 74177; 76830; 76856; 80053; 81001; 83605; 83690; 84145; 84702; 85025; 85610; 85730; 87040; 87210; 87491; 87502; 87591; 93005; 96361; 96374; 96375; 96376; 99222; 99232; 99238; 99285; J1885; J2270; J2405; J2543; Q9967